=== PATIENT | male | born 1980 | race Two or more races ===

== ENCOUNTER 2021-11-27 11:24 | Emergency (ER) | payer BC, MEDICAID ==
[~2021-11-27] VITALS: Ht 188 cm; Wt 106.6 kg
--- NOTE | 2021-11-27 11:30 | NUR ---
Received pt 41 yrs male from home laceration on rt midle finger with bleeding
--- NOTE | 2021-11-27 11:35 | NUR ---
seen by DR. BRODERICK
[2021-11-27] MEDS ORDERED: LIDOCAINE HCL/PF 1% 30 ML VIAL TP ONE (12:00)
[2021-11-27 12:30] VITALS: BP 122/71
--- NOTE | 2021-11-27 12:30 | NUR ---
Patient discharged to home in stable condition. Written and verbal after care instructions given. Patient verbalizes understanding of instruction.
== END 2021-11-27 12:30 | disposition home or self-care (01) ==
LOC: ER 11:32
DX: S61.212A Laceration without foreign body of right middle finger without damage to nail, initial encounter (principal); W25.XXXA Contact with sharp glass, initial encounter; Y93.89 Activity, other specified; Y92.89 Other specified places as the place of occurrence of the external cause; Y99.8 Other external cause status
CPT/HCPCS: 99283; 12001; 73130; J3490

== ENCOUNTER 2022-05-05 21:39 | Emergency (ER) | payer BC ==
[~2022-05-05] VITALS: Ht 188 cm; Wt 106.6 kg
--- NOTE | 2022-05-05 22:44 | NUR ---
RAC 18 IV LINE STARTED BLOOD WORK COLLECTED SENT TO LAB
--- NOTE | 2022-05-05 22:50 | NUR ---
[employer] AT PT'S BEDSIDE
[2022-05-05] MEDS ORDERED: ONDANSETRON HCL/PF 4 MG/2 ML VIAL ONE (22:54)
[2022-05-05] MEDS ORDERED: predniSONE 20 MG TABLET ONE (22:54)
[2022-05-05] MEDS ORDERED: KETOROLAC TROMETHAMINE INJ 30 MG/ML VIAL ONE (22:55)
[2022-05-05] MEDS ORDERED: MORPHINE SULFATE INJ 4 MG/ML DISP.SYRIN ONE (22:55)
[2022-05-05] MEDS: IV NS 0.9% 1,000 ML BAG IV ONE (23:05)
[2022-05-05] MEDS: MORPHINE SULFATE INJ 2 MG/ML DISP.SYRIN IV ONE (23:09)
[2022-05-05] MEDS: ONDANSETRON HCL/PF 4 MG/2 ML VIAL IVP ONE (23:11)
[2022-05-05] MEDS: predniSONE 20 MG TABLET PO ONE (23:11)
[2022-05-05] MEDS: KETOROLAC TROMETHAMINE INJ 30 MG/ML VIAL IV ONE (23:11)
[2022-05-05 23:24] LABS: BASOPHILS # (AUTO) 0.1 K/uL (0.0-0.2); BASOPHILS % (AUTO) 0.6 % (0.0-2.0); EOSINOPHILS % (AUTO) 0.8 % (0.0-6.0); HEMATOCRIT 45 % (39-51); HEMOGLOBIN 14.6 g/dL (13.5-17.5); LYMPHOCYTES # (AUTO) 1.9 K/uL (0.8-4.8); LYMPHOCYTES % (AUTO) 13.6 % (20.0-44.0); MEAN CORPUSCULAR HGB CONC 33 g/dl (31.0-36.0); MEAN CORPUSCULAR VOLUME 81 fL (80-96); MONOCYTES % (AUTO) 7.2 % (2.0-12.0); NEUTROPHILS % (AUTO) 77.8 % (43.0-81.0); PLATELET COUNT (AUTO) 292 K/uL (150-450); RED BLOOD CELL COUNT(AUTO) 5.56 MIL/uL (4.5-6.0); WHITE BLOOD COUNT (AUTO) 14.1 K/uL (4.3-11.0)
[2022-05-05 23:31] LABS: CREATININE 1.2 mg/dL (0.6-1.3); POTASSIUM 5.1 mmol/L (3.5-5.1)
[2022-05-05 23:45] LABS: ALBUMIN 3.9 g/dL (3.4-5.0); BILIRUBIN,DIRECT 0.1 mg/dL (0.0-0.2); BILIRUBIN,TOTAL 0.5 mg/dL (0.2-1.0); CALCIUM, SERUM 8.4 mg/dL (8.5-10.1); TOTAL PROTEIN, SERUM 8.1 g/dL (6.4-8.2)
[2022-05-06] MEDS ORDERED: PRED50TA PO (00:08)
[2022-05-06] MEDS ORDERED: CEPH500C2 PO (00:08)
[2022-05-06] MEDS ORDERED: HYDR-3972 PO (00:08)
--- NOTE | 2022-05-06 00:25 | NUR ---
Patient discharged to home in stable condition. Written and verbal after care instructions given. Patient verbalizes understanding of instruction. IV removed. Catheter intact and site benign. Pressure and 4x4 applied to site. No bleeding noted.
[2022-05-06] MEDS: HYDROCODONE/APAP 5/325MG TABLET PO ONE (01:00)
[2022-05-06 01:01] VITALS: BP 139/70
== END 2022-05-06 01:01 | disposition home or self-care (01) ==
LOC: ER 21:42
DX: M25.422 Effusion, left elbow (principal)
CPT/HCPCS: 99284; 96374; 96375; 96361; 73080; 85025; 80048; 80076; 85652; 84550; 36415; J2270; J7512; J1885; J2405; J7030